=== PATIENT | female | born 1970 | race Hispanic/Latino ===

== ENCOUNTER 2018-06-19 10:16 | Emergency (ER) | payer BC ==
[2018-06-19 11:02] VITALS: BP 147/87; PULSE 65; RESP 16; TEMP 97; O2SAT 97
--- NOTE | 2018-06-19 11:35 | ED PDOC ---
Upper Extremity Pain/Injury Time Seen by Provider: 06/19/18 10:56 Chief Complaint (Nursing): Upper Extremity Problem/Injury Chief Complaint (Provider): Upper Extremity Problem/Injury History Per: Patient History/Exam Limitations: no limitations Current Symptoms Are (Timing): Still Present Quality: "Pain" Additional Complaint(s): 48 year old female with no significant past medical history presents to the ED with right shoulder pain. Patient reports pain is worse with movement and lifting heavy stuff. 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 Otherwise, she denies numbness, tingling, neck pain, chest pain, shortness of breath or any other medical complaints. Patient took ibuprofen with minimal relief, last dose was yesterday. No other injuries, other than the overuse at work. PMD: Balbrianna Past Medical History Reviewed: Historical Data, Nursing Documentation, Vital Signs Vital Signs: Last Vital Signs Temp 97 F L 06/19/18 10:58 Pulse 65 06/19/18 10:58 Resp 16 06/19/18 10:58 BP 147/87 06/19/18 10:58 Pulse Ox 97 06/19/18 10:58 - Medical History PMH: No Chronic Diseases - Surgical History Surgical History: No Surg Hx - Family History Family History: States: Unknown Family Hx - Social History Alcohol: None Drugs: Denies - Home Medications Home Medications: Ambulatory Orders Medication Instructions Recorded Ibuprofen [Motrin] 600 mg PO TID 7 Days tab 06/19/18 - Allergies Allergies/Adverse Reactions: Allergies Allergy/AdvReac Type Severity Reaction Status Date / Time No Known Allergies Allergy Verified 06/19/18 10:58 Review of Systems Constitutional: Negative for: Weakness Cardiovascular: Negative for: Chest Pain, Edema, Light Headedness Respiratory: Negative for: Cough, Shortness of Breath Gastrointestinal: Negative for: Abdominal Pain Musculoskeletal: Positive for: Shoulder Pain (right). Negative for: Neck Pain Skin: Negative for: Rash Neurological: Negative for: Weakness, Numbness Physical Exam - Reviewed Nursing Documentation Reviewed: Yes Vital Signs Reviewed: Yes - Physical Exam Appears: Positive for: Non-toxic, No Acute Distress Skin: Positive for: Normal Color, Warm, Dry Cardiovascular/Chest: Positive for: Regular Rate, Rhythm. Negative for: Murmur Respiratory: Positive for: Normal Breath Sounds. Negative for: Respiratory Distress Back: Positive for: Normal Inspection. Negative for: L CVA Tenderness, R CVA Tenderness Extremity: Positive for: Normal ROM (with pain), Tenderness (anterior shoulder), Other (Painful ROM of shoulder; no induration, no erythema ). Negative for: Swelling Neurologic/Psych: Positive for: Alert, Oriented (x3) - ECG O2 Sat by Pulse Oximetry: 97 (RA) Pulse Ox Interpretation: Normal - Radiology X-Ray: Read By Radiologist X-Ray Interpretation: No Acute Disease - Progress ED Course And Treament: 1256: Stable. AAOx3. Pain free. Tolerated po. Fu with pcp. Medical Decision Making Medical Decision Making: Time: 1127 Initial Impression: Right shoulder pain Initial Plan: --Motrin 600 mg PO --RT shoulder XR Scribe Attestation: Documented by Jesusita Lu, acting as a scribe for Ben Carpenter MD Provider Scribe Attestation: All medical record entries made by the Scribe were at my direction and perso letitia dictated by me. I have reviewed the chart and agree that the record accurately reflects my personal performance of the history, physical exam, medical decision making, and the department course for this patient. I have also personally directed, reviewed, and agree with the discharge instructions and disposition. Disposition - Clinical Impression Clinical Impression: Shoulder pain - Patient ED Disposition Is Patient to be Admitted: No Counseled Patient/Family Regarding: Studies Performed, Diagnosis, Need For Followup, Rx Given - Disposition Referrals: [facility] [Outside] - 06/22/18 Disposition: Routine/Home Disposition Time: 12:57 Condition: STABLE Additional Instructions: Return if not better in 3 days. Prescriptions: Ibuprofen [Motrin] 600 mg PO TID 7 Days tab Instructions: Shoulder Pain (DC) Forms: [employer] ([place]), [facility] School/Work Excuse
--- NOTE | 2018-06-19 12:25 | RAD ---
Date of service: 06/19/2018 PROCEDURE: Radiographs of the Right Shoulder HISTORY: shoulder pain COMPARISON: No prior. FINDINGS: BONES: Old healed fracture deformity distal 1/3 right clavicle. No evidence of acute displaced fracture nor dislocation. 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 SOFT TISSUES: Normal. OTHER FINDINGS: None. IMPRESSION: No acute displaced fracture nor dislocation. Old healed fracture deformity distal 1/3 right clavicle.
== END 2018-06-19 13:16 | disposition home or self-care (01) ==
LOC: H.ER 10:16
DX: M25.511 Pain in right shoulder (principal); X50.0XXA Overexertion from strenuous movement or load, initial encounter